=== PATIENT | male | born 1990 | race Caucasian/White ===

== ENCOUNTER 2016-09-17 19:54 | Emergency (ER) | payer OTHER ==
[2016-09-17 22:19] LABS: HEMOGLOBIN 14.8 gm/dl (14.0-17.5); WHITE BLOOD COUNT 13.5 K/UL (4.5-11.0)
[2016-09-17 22:37] LABS: BUN/CREATININE RATIO 17 (0-10)
== END 2016-09-17 23:32 | disposition short-term general hospital (02) ==
LOC: ER1 19:54
PROVIDERS: Emergency Medicine
DX: T18.128A Food in esophagus causing other injury, initial encounter (principal); Z88.1 Allergy status to other antibiotic agents
CPT/HCPCS: 36415; 71010; 74000; 80053; 82550; 82553; 83605; 83690; 83874; 84484; 85025; 85610; 85730; 93005; 96361; 96365; 96375; 99285; J1610; J2405

== ENCOUNTER 2020-07-24 16:42 | Emergency (ER) | payer OTHER ==
[~2020-07-24 16:42] MED LIST: PREDNISONE10 MG PO; VISTARIL25 MG PO; ZYRTEC10 MG PO
== END 2020-07-24 21:41 | disposition short-term general hospital (02) ==
LOC: ER1 16:42
DX: T18.128A Food in esophagus causing other injury, initial encounter (principal); Z88.1 Allergy status to other antibiotic agents; X58.XXXA Exposure to other specified factors, initial encounter; Z20.822 Contact with and (suspected) exposure to COVID-19
CPT/HCPCS: 87635; 96372; 99283; J1610; J2250; J2704; J3010

== ENCOUNTER 2021-01-20 14:56 | Emergency (ER) | payer SELFPAY ==
[2021-01-20] MEDS ORDERED: CLEOCIN HCL300 MG PO (16:35)
[2021-01-20] MEDS ORDERED: IBUPROFEN600 MG PO (16:35)
[2021-01-20] MEDS ORDERED: BACTROBAN OINT22 GM EXT (16:35)
== END 2021-01-20 16:45 | disposition home or self-care (01) ==
LOC: ER1 14:56
DX: L03.113 Cellulitis of right upper limb (principal); F17.220 Nicotine dependence, chewing tobacco, uncomplicated
CPT/HCPCS: 87070; 87077; 87186; 87205; 99283